=== PATIENT | male | born 1995 | race Caucasian/White ===

== ENCOUNTER 2022-10-11 14:05 | Outpatient (REF) | payer OTHER, SELFPAY ==
[2022-10-11 16:28] LABS: Influenza A PCR NEGATIVE (Negative); Influenza B PCR NEGATIVE (Negative); Resp Syncy Virus RNA Qual PCR NEGATIVE (Negative); SARS COV2 PCR INHOUSE NEGATIVE (Negative)
== END 2022-10-11 14:06 | disposition home or self-care (01) ==
LOC: HO.LNP 14:05
PROVIDERS: Visit Provider Physician Assistant
DX: J06.9 Acute upper respiratory infection, unspecified (principal); Z20.822 Contact with and (suspected) exposure to COVID-19
CPT/HCPCS: 0241U

== ENCOUNTER 2023-06-01 15:51 | Outpatient (AMB) | payer OTHER, SELFPAY ==
[2023-06-01 16:06] VITALS: BP 120/78; PULSE 62; O2SAT 98; BMI 22.7
--- NOTE | 2023-06-01 16:06 | A.OFFPC_ITS ---
Vital Signs 06/01/23 16:06 Height 6 ft 1 in Weight 172 lb 2 oz BMI 22.7 BP 120/78 Blood Pressure Location Lt brachial Position Sitting Pulse 62 Pulse Source Pulse Oximeter Pulse Oximetry (%) 98 Oxygen Delivery Method Room Air Intake Visit Reasons: PE Allergies clarithromycin Allergy (Severe, Verified 06/01/23 16:08) Anaphylaxis clindamycin Allergy (Severe, Verified 06/01/23 16:08) Anaphylaxis Tobacco use date assessed: 06/01/23 Dental Screening Dental Screen Date: 06/01/23 Did you have a dental visit in the last 12 months?: Yes Did you have a dental problem in the last 6 months where you did not have access to dental care?: No Was dental information given to patient?: Patient has dentist HPI PE HPI Details Pt is here for a PE. Will order labs. Pt c/o increased acid reflux. Will send omeprazole. [facility] Social History Housing: House Patient Tobacco Use Status: Never used Tobacco e-Cigarette/Vaping Use: Currently Using Second Hand Smoke Exposure: Yes Current occupational status: employed Current occupation: construction Current occupational exposures/hazards: Yes Cognitive needs: No Hearing needs: No Vision needs: No Questionnaire Thrive Questionnaire Date Thrive assessed: 05/31/22 AUDIT C Alcohol Use Questionnaire (AUDIT-C) 1. How often do you have a drink containing alcohol?: Monthly or less 2. How many drinks containing alcohol do you have on a typical day when you are drinking?: 3 or 4 3. How often do you have six or more drinks on one occasion?: Never Total Score: 2 YAZMIN-7 AMB Questionnaire YAZMIN-7 Date YAZMIN - 7 assessed: 05/31/22 Source: Developed by Drs. Florencio Granado, Rachel Cordero, James Leavitt and colleagues, with an educational sheryl from [employer]. Review of Systems Const Denies chills and Denies fever(s) Eyes Denies blurry vision ENT Denies vertigo, Denies dizziness and Denies sore throat Card Denies chest pain at rest, Denies chest pain with activity, Denies diaphoresis, Denies dyspnea and Denies dyspnea on exertion Resp Denies cough, Denies dyspnea, Denies dyspnea on exertion and Denies wheezing GI Denies abdominal pain, Denies melena, Denies hematochezia, Denies constipation, Denies diarrhea and Denies loose stools Denies hematuria Musc Denies numbness and Denies tingling Skin/Breast Denies lesions Neuro Denies vertigo, Denies dizziness, Denies numbness and Denies tingling Psych Denies anxiety, Denies depression, Denies homicidal ideation, Denies suicidal ideation and Denies other (substance abuse) Aller/Immun Denies wheezing Physical exam (Primary Care) Vital Signs: Last Vital Signs Pulse 62 06/01/23 16:06 BP 120/78 06/01/23 16:06 Pulse Ox 98 06/01/23 16:06 Oxygen Delivery Method Room Air 06/01/23 16:06 BMI result Body Mass Index 22.7 Tobacco/Smoking Status: Tobacco use Status Tobacco use date assessed 06/01/23 06/01/23 16:11 Patient Tobacco Use Status Never used Tobacco 06/01/23 16:07 e-Cigarette/Vaping Use Currently Using 06/01/23 16:07 Thrive Assessment: Date of Thrive Assessment Date Thrive assessed 05/31/22 06/01/23 16:07 Const General: cooperative Nutritional Appearance: well nourished Orientation/consciousness: patient oriented x3 HENMT Head: Yes normal to inspection, Yes normocephalic and Yes atraumatic Ears: TM's normal bilaterally Eyes General: appearance normal, both eyes and all related structures Alignment and Position: alignment normal and position normal Neck Neck: Yes normal visual inspection and Yes no lymphadenopathy Thyroid: Thyroid normal Resp Effort & Inspection: normal respiratory effort Auscultation: clear to auscultation bilaterally Cardio Rate: regular rate Rhythm: regular rhythm Heart sounds: S1 normal heart sound present, S2 normal heart sound present and no murmurs GI Palpation (GI): Soft to palpation and nontender Auscultation: normal bowel sounds Male General Exam: Yes normal external exam Penis: normal penis Scrotum: scrotum normal, testes descended bilaterally and no inguinal hernias Testes: no testicular mass Skin Rashes: no rashes Neuro General: patient oriented x3, moves all extremities, no focal motor deficits and deep tendon reflexes 2+ bilaterally Romberg Test: Negative Psych Appearance: grossly normal Mental Status: mental status grossly normal Speech and movement: Normal speech and movement present Affect: normal affect Attitude: cooperative Thought process: Normal thought process present Thought content: Normal thought content present Insight: Good insight present (Psych) Judgement: Good judgement present (Psych) Assessment and Plan Assessment & Plan (1) Physical exam: Code(s): Z00.00 - Encounter for general adult medical examination without abnormal findings Plan: Labs ordered Plan The patient agreed to the use of a medical billing associate for this encounter. Scribed for MARY Pérez by Ivy Cazares medical billing associate, on 06/01/2023 at 16:15 EST. Orders: Orders Complete Blood Count Auto Diff Today Z00.00 - Encounter for general adult medical examination without abnormal findings Comprehensive [place]. Panel Fast Today Z00.00 - Encounter for general adult medical examination without abnormal findings TSH reflex Free T4 Today Z00.00 - Encounter for general adult medical examination without abnormal findings UA CC w/rflx Micro + Cult Today Z00.00 - Encounter for general adult medical examination without abnormal findings Lipid Panel Today Z00.00 - Encounter for general adult medical examination without abnormal findings Medications: New omeprazole 20 mg PO DAILY 90 caps 0RF Coding Level of Care Code Est Pt Prev Care 18-39y(83489) Diagnoses Physical exam Z00.00
== END 2023-06-01 16:57 | disposition home or self-care (01) ==
PROVIDERS: PCP Nurse Practitioner Family; Visit Provider Nurse Practitioner Family
DX: Z00.00 Encounter for general adult medical examination without abnormal findings (principal)
CPT/HCPCS: 99395

== ENCOUNTER 2023-09-02 07:27 | Outpatient (REF) | payer OTHER, SELFPAY ==
[2023-09-02 11:06] LABS: MANUAL DIFF FLAG NO
[2023-09-02 11:19] LABS: Basophils Percent Auto 0.5 % (0-2); Eosinophils Absolute Auto 0.2 X10*3/uL (0.0-0.4); Hematocrit 43.9 % (42.0-52.0); Hemoglobin 15.3 g/dl (14.0-18.0); Lymphocytes Absolute Auto 1.5 X10*3/uL (1.2-4.9); Lymphocytes Percent Auto 38.1 % (20-40); Mean Corpuscular HGB Conc 34.9 g/dl (31.0-36.0); Mean Corpuscular Hemoglobin 30.7 pg (27.0-33.0); Mean Platelet Volume 11.9 fL (9.4-12.4); Monocytes Absolute Auto 0.4 X10*3/uL (0.1-1.2); Monocytes Percent Auto 10.9 % (2-11); Neutrophils Absolute Auto 1.9 x10*3/uL (2.0-8.3); Neutrophils Percent Auto 46.5 % (45-73); Platelet Count 200 X10*3/uL (160-400); Red Blood Count 4.99 X10*6/uL (4.60-5.80); Red Cell Distribution Width 12.4 % (11.0-16.0)
[2023-09-02 11:22] LABS: Appearance Urine Turbid; Color Urine Yellow; Glucose Urine UA Negative (Negative); Leukocyte Esterase Urine Negative (Negative); Nitrite Urine Negative (Negative); UMIC TRIGGER UACC YES; Urine Blood Negative (Negative); Urine Ketones Negative (Negative); Urine Protein 100 (2+) mg/dL (Neg-Trace)
[2023-09-02 11:38] LABS: Bacteria Urine None Seen (None Seen); RBC Urine 0-2 /HPF (0-2); Squamous Epithelial Cell Urine 0-2 /HPF (0-2); WBC Urine 0-5 /HPF (0-5)
[2023-09-02 11:41] LABS: Alanine Aminotransferase 27 U/L (0-40); Albumin Level 4.8 g/dL (3.5-5.0); Alkaline Phosphatase 41 U/L (39-117); Anion Gap 11 (12-20); Aspartate Amino Transferase 26 U/L (5-37); Bilirubin Total 0.5 mg/dL (0.0-1.0); Blood Urea Nitrogen 18 mg/dL (9-16); Calcium 9.7 mg/dL (8.4-10.2); Carbon Dioxide 26 mmol/L (22-29); Chloride 106 mmol/L (96-108); Cholesterol 182 mg/dL (<200); Estimated Glomerular Filt Rate > 60; Glucose Fasting 103 mg/dL (60-99); HDL Cholesterol 50 mg/dL (>40); LDL Cholesterol Calculated 110 mg/dL (<100); Potassium 3.7 mmol/L (3.3-5.1); Sodium 139 mmol/L (135-145); Total Protein 7.4 g/dL (6.5-8.0); Triglycerides 114 mg/dL (<150)
[2023-09-02 11:57] LABS: TSH reflex Free T4 0.93 uIU/mL (0.32-4.0)
== END 2023-09-02 07:28 | disposition home or self-care (01) ==
LOC: HO.HMGCLDS 07:27
PROVIDERS: PCP Nurse Practitioner Family; Visit Provider Nurse Practitioner Family
DX: Z00.00 Encounter for general adult medical examination without abnormal findings (principal); Z13.220 Encounter for screening for lipoid disorders; Z13.0 Encounter for screening for diseases of the blood and blood-forming organs and certain disorders involving the immune mechanism; Z13.29 Encounter for screening for other suspected endocrine disorder
CPT/HCPCS: 36415; 80053; 80061; 81001; 84443; 85025

== ENCOUNTER 2023-11-22 09:14 | Outpatient (AMB) | payer OTHER, SELFPAY ==
--- NOTE | 2023-11-22 10:29 | MHC.OFFWIV ---
Intake Vital Signs 11/22/23 10:38 Height 6 ft 1 in Weight 165 lb BMI 21.8 BP 120/76 Blood Pressure Location Lt brachial Position Sitting Pulse 61 Pulse Source Pulse Oximeter Temp 98.4 F Temp Source Temporal Artery Scan Pulse Oximetry (%) 99 Oxygen Delivery Method Room Air Intake Visit Reasons: EP cough headache congestion [id number] Intake Note: pt is here today for cough headache congestion started yesteday Patient Tobacco Use Status: Never used Tobacco Allergies clarithromycin Allergy (Severe, Verified 11/22/23 11:20) Anaphylaxis clindamycin Allergy (Severe, Verified 11/22/23 11:20) Anaphylaxis Medication List - Last Reconciled 11/22/23 by Yadira Duarte, [facility] albuterol sulfate 90 mcg/actuation 2 puffs inhalation Q6H PRN loratadine (Claritin) 10 mg PO DAILY multivitamin 1 tab PO DAILY omeprazole 20 mg PO DAILY Do you need a note to return to daycare/school/sports/work: Yes HPI HPI Comments History of Present Illness Details HERE TODAY C/O FLU LIKE SX STARTED LAST COVID TEST + LAST MONDAY BOTHERSOME SX IS A COUGH THAT CONTINUES PAROXYSMAL NONPRODUCTIVE COVID TEST NEGATIVE YESTERDAY EXPOSED TO SISTER W/ RSV. + ASTHMA, TRIED RESCUE INHALER W MINIMAL RELIEF PFSH Social History Housing: House Patient Tobacco Use Status: Never used Tobacco e-Cigarette/Vaping Use: Currently Using Second Hand Smoke Exposure: Yes Current occupational status: employed Current occupation: construction Current occupational exposures/hazards: Yes Cognitive needs: No Hearing needs: No Vision needs: No Review of Systems Const All systems reviewed & are unremarkable except as noted in HPI and below Physical Exam Vital Signs: Last Vital Signs Temp 98.4 F 11/22/23 10:38 Pulse 61 11/22/23 10:38 BP 120/76 11/22/23 10:38 Pulse Ox 99 11/22/23 10:38 Oxygen Delivery Method Room Air 11/22/23 10:38 BMI result Body Mass Index 21.8 Const Other: Ls CTAB, paroxysmal coughing RRR Assessment & Plan Assessment & Plan (1) Asthma exacerbation: Code(s): J45.901 - Unspecified asthma with (acute) exacerbation Qualifiers: Asthma severity: mild Asthma persistence: intermittent Qualified Code(s): J45.21 - Mild intermittent asthma with (acute) exacerbation Plan: . Plan offered and declined in office updraft tx advised to use ICS for about 1 month or until his sx resolve Edu on reasons to RTO Medications: New benzonatate 100 mg PO TID 10 days PRN 30 caps 1RF cough prednisone 50 mg PO DAILY 5 days 5 tabs 0RF fluticasone propionate 50 mcg/actuation (Flovent Diskus) 1 inh inhalation Q12H 30 days 60 ea 0RF Coding Level of Care Code Est Pt Level 3 (44162) Diagnoses Mild intermittent asthma with exacerbation J45.21 Asthma severity: mild Asthma persistence: intermittent
[2023-11-22 10:38] VITALS: BP 120/76; PULSE 61; TEMP 36.9; O2SAT 99; BMI 21.8
== END 2023-11-22 12:06 | disposition home or self-care (01) ==
PROVIDERS: PCP Nurse Practitioner Family; Visit Provider Nurse Practitioner Family
DX: J45.21 Mild intermittent asthma with (acute) exacerbation (principal)
CPT/HCPCS: 99213

== ENCOUNTER 2024-01-29 16:06 | Outpatient (AMB) | payer OTHER, SELFPAY ==
--- NOTE | 2024-01-29 16:09 | AM.OFFVISNUR ---
Intake Intake Visit Reasons: TDAP W/ Steven Intake Note: patient was given a tdap in office, tolerated well. Allergies clarithromycin Allergy (Severe, Verified 11/22/23 11:20) Anaphylaxis clindamycin Allergy (Severe, Verified 11/22/23 11:20) Anaphylaxis Immunizations Boostrix Tdap 2.5 Lf unit-8 mcg-5 Lf/0.5 mL intramuscular syringe Performing Provider: MARY Starks Performing Location: [facility] Administered by: Steven Corea CMA on 01/29/24 16:10 Dose Route Admin Location Dispensed Lot Number Expiration Date NDC Digital Marketing Program Manager 0.5 mL IM Left Deltoid 0.5 mL [id number] 03/29/26 [id number] [employer] VIS Given Date VIS Provided VIS Publication Date 01/29/24 Single Vaccine 21 Eligibility Eligibility Date Funding Source Not VFC Eligible 01/29/24 Private Coding Assessment & Plan Assessment & Plan Orders: Orders TDaP Immunization Today Z23 - Encounter for immunization
== END 2024-01-29 16:09 | disposition home or self-care (01) ==
LOC: HO.HMGC 16:06
PROVIDERS: PCP Nurse Practitioner Family; Visit Provider Nurse Practitioner Family
DX: Z23 Encounter for immunization (principal)
CPT/HCPCS: 90471; 90715

== ENCOUNTER 2024-06-08 08:38 | Outpatient (REF) | payer OTHER, SELFPAY ==
[2024-06-08 11:01] LABS: MANUAL DIFF FLAG NO
[2024-06-08 11:04] LABS: Basophils Percent Auto 0.5 % (0-2); Eosinophils Absolute Auto 0.1 X10*3/uL (0.0-0.4); Eosinophils Percent Auto 2.9 % (0-4); Hematocrit 46.5 % (42.0-52.0); Hemoglobin 16.2 g/dl (14.0-18.0); Imm Gran Abs Auto 0.01 X10*3/uL (0.00-0.03); Imm Gran Pct Auto 0.2 % (0.0-0.4); Lymphocytes Absolute Auto 1.6 X10*3/uL (1.2-4.9); Lymphocytes Percent Auto 37.8 % (20-40); Mean Corpuscular HGB Conc 34.8 g/dl (31.0-36.0); Mean Corpuscular Hemoglobin 30.6 pg (27.0-33.0); Mean Corpuscular Volume 87.7 fL (80.0-98.0); Mean Platelet Volume 11.6 fL (9.4-12.4); Monocytes Absolute Auto 0.4 X10*3/uL (0.1-1.2); Monocytes Percent Auto 10.7 % (2-11); Neutrophils Percent Auto 47.9 % (45-73); Platelet Count 202 X10*3/uL (160-400); Red Cell Distribution Width 12.6 % (11.0-16.0); White Blood Count 4.1 X10*3/uL (4.8-10.8)
[2024-06-08 11:15] LABS: Appearance Urine Clear; Color Urine Yellow; Glucose Urine UA Negative (Negative); Leukocyte Esterase Urine Negative (Negative); Nitrite Urine Negative (Negative); PH 7.5 (5.0-9.0); Specific Gravity - Urine 1.015 (1.005-1.025); UMIC TRIGGER UACC YES; Urine Blood Negative (Negative); Urine Ketones Negative (Negative); Urine Protein 30 (1+) mg/dL (Neg-Trace)
[2024-06-08 11:22] LABS: Bacteria Urine None Seen (None Seen); Hyaline Casts Urine 0-2 /LPF (0-2); RBC Urine 0-2 /HPF (0-2); Squamous Epithelial Cell Urine 0-2 /HPF (0-2); WBC Urine 0-5 /HPF (0-5)
== END 2024-06-08 08:39 | disposition home or self-care (01) ==
LOC: HO.HMGCLDS 08:38
PROVIDERS: PCP Nurse Practitioner Family; Visit Provider Nurse Practitioner Family
DX: D72.819 Decreased white blood cell count, unspecified (principal)
CPT/HCPCS: 36415; 81001; 85025

== ENCOUNTER 2024-06-25 15:15 | Outpatient (AMB) | payer OTHER, SELFPAY ==
[2024-06-25 15:16] VITALS: BP 130/80; PULSE 82; O2SAT 98; BMI 24.6
--- NOTE | 2024-06-25 15:16 | A.OFFPC_ITS ---
Vital Signs 06/25/24 15:16 Height 6 ft 1 in Weight 186 lb 7 oz BMI 24.6 BP 130/80 Blood Pressure Location Rt brachial Position Sitting Pulse 82 Pulse Source Pulse Oximeter Pulse Oximetry (%) 98 Oxygen Delivery Method Room Air Intake Visit Reasons: Annual PE Intake Note: pt is here for annual exam Water Softener Installer Required: No Accompanied by: Self / Same As Patient Allergies clarithromycin Allergy (Severe, Verified 06/25/24 15:17) Anaphylaxis clindamycin Allergy (Severe, Verified 06/25/24 15:17) Anaphylaxis Tobacco use date assessed: 06/25/24 Dental Screening Dental Screen Date: 06/25/24 Did you have a dental visit in the last 12 months?: Yes Did you have a dental problem in the last 6 months where you did not have access to dental care?: No Was dental information given to patient?: Patient has dentist HPI Annual PE HPI Details Pt is here for a PE. Labs have been ordered. Pt has a hx of proteinuria. Will repeat UA. Encouraged pt to stay hydrated. Leukopenia also noted, will repeat labs. [facility] Social History Housing: House Patient Tobacco Use Status: Never used Tobacco e-Cigarette/Vaping Use: Currently Using Second Hand Smoke Exposure: Yes Current occupational status: employed Current occupation: construction Current occupational exposures/hazards: Yes Cognitive needs: No Hearing needs: No Vision needs: No Questionnaire PHQ-9 Over the last 2 weeks, how often have you been bothered by any of the following problems? 1. Little interest or pleasure in doing things: not at all 2. Feeling down, depressed, or hopeless: not at all 3. Trouble falling or staying asleep, or sleeping too much: several days 4. Feeling tired or having little energy: several days 5. Poor appetite or overeating: not at all 6. Feeling bad about yourself - or that you are a failure or have let yourself or your family down: not at all 7. Trouble concentrating on things, such as reading the newspaper or watching television: not at all 8. Moving or speaking so slowly that other people could have noticed. Or the opposite - being so fidgety or restless that you have been moving around a lot more than usual: not at all 9. Thoughts that you would be better off or of hurting yourself in some way: not at all Total score: 2 Depression Screening Interpretation: Negative Depression Screening Done: Yes 87098 - PHQ-9 Billing: Yes Source: Developed by Drs. Florencio Granado, Rachel Cordero, James Leavitt and colleagues, with an educational sheryl from [employer]. Thrive Questionnaire Date Thrive assessed: 06/25/24 I am a: Patient What is your living situation today?: I have a steady place to live Within the past 12 months, did the food you bought not last and you didn't have the money to get more?: Never true Within the past 12 months, did you worry whether your food would run out before you got money to buy more?: Never true Do you have trouble paying for medicines?: No Do you have trouble getting transportation to medical appointments?: No Do you have trouble paying your heating and electricity bill?: No Do you have trouble taking care of your child, family member or friend?: No Do you have trouble with day-to-day activities such as bathing, preparing meals, shopping, managing finances, etc.?: No Are you currently unemployed and looking for a job?: No Are you interested in more education?: No Please select the resources that you would like help with: None Currently or been in a relationship where the following occur: No concerns reported THRIVE Score: 0 AUDIT C Alcohol Use Questionnaire (AUDIT-C) 1. How often do you have a drink containing alcohol?: Monthly or less 2. How many drinks containing alcohol do you have on a typical day when you are drinking?: 3 or 4 3. How often do you have six or more drinks on one occasion?: Less than monthly Total Score: 3 Score Reviewed/Action Taken: Yes YAZMIN-7 AMB Questionnaire YAZMIN-7 Date YAZMIN - 7 assessed: 06/25/24 Feeling nervous, anxious, or on edge: 0 = Not at all Not being able to stop or control worryin = Not at all Worrying too much about different things: 1 = Several days Trouble relaxin = Not at all Being so restless that it is hard to sit still: 0 = Not at all Becoming easily annoyed or irritable: 0 = Not at all Feeling afraid as if something awful might happen: 0 = Not at all Total YAZMIN-7 score (0-4 normal; 5-9 mild; 10-14 moderate; 15-21 severe): 1 Source: Developed by Drs. Florencio Granado, Rachel Cordero, James Leavitt and colleagues, with an educational sheryl from [employer]. YAZMIN-7 Assessment Billing YAZMIN-7 Assessment Tool: YAZMIN-7 Assessment [id number] Review of Systems Const Denies chills and Denies fever(s) Eyes Denies blurry vision ENT Denies vertigo, Denies dizziness and Denies sore throat Card Denies chest pain at rest, Denies chest pain with activity, Denies diaphoresis, Denies dyspnea and Denies dyspnea on exertion Resp Denies cough, Denies dyspnea, Denies dyspnea on exertion and Denies wheezing GI Denies abdominal pain, Denies melena, Denies hematochezia, Denies constipation and Reports loose stools Denies hematuria Musc Denies numbness and Denies tingling Skin/Breast Denies lesions Neuro Denies vertigo, Denies dizziness, Denies numbness and Denies tingling Psych Denies anxiety, Denies depression, Denies homicidal ideation, Denies suicidal ideation and Denies other (substance abuse) Aller/Immun Denies wheezing Physical exam (Primary Care) Vital Signs: Last Vital Signs Pulse 82 06/25/24 15:16 BP 130/80 06/25/24 15:16 Pulse Ox 98 06/25/24 15:16 Oxygen Delivery Method Room Air 06/25/24 15:16 BMI result Body Mass Index 24.6 Tobacco/Smoking Status: Tobacco use Status Tobacco use date assessed 06/25/24 06/25/24 15:21 Patient Tobacco Use Status Never used Tobacco 06/25/24 15:16 e-Cigarette/Vaping Use Currently Using 06/25/24 15:16 PHQ-9: PHQ-9 Score PHQ-9: Total score 2 06/25/24 15:21 Depression Screening Interpretation: Negative Thrive Assessment: Date of Thrive Assessment Date Thrive assessed 06/25/24 06/25/24 15:21 Currently or been in a relationship where the following occur: No concerns reported Const General: cooperative Nutritional Appearance: well nourished Orientation/consciousness: patient oriented x3 HENMT Head: Yes normal to inspection, Yes normocephalic and Yes atraumatic Ears: TM's normal bilaterally Eyes General: appearance normal, both eyes and all related structures Alignment and Position: alignment normal and position normal Neck Neck: Yes normal visual inspection, Yes no lymphadenopathy and Yes supple Resp Effort & Inspection: normal respiratory effort Auscultation: clear to auscultation bilaterally Cardio Rate: regular rate Rhythm: regular rhythm Heart sounds: S1 normal heart sound present, S2 normal heart sound present and no murmurs GI Palpation (GI): Soft to palpation and nontender Auscultation: normal bowel sounds Male General Exam: Yes normal external exam Penis: normal penis Scrotum: scrotum normal, testes descended bilaterally and no inguinal hernias Testes: no testicular mass Skin Rashes: no rashes Neuro General: patient oriented x3, moves all extremities, no focal motor deficits and deep tendon reflexes 2+ bilaterally Romberg Test: Negative Psych Appearance: grossly normal Mental Status: mental status grossly normal Speech and movement: Normal speech and movement present Affect: normal affect Attitude: cooperative Thought process: Normal thought process present Thought content: Normal thought content present Insight: Good insight present (Psych) Judgement: Good judgement present (Psych) Assessment and Plan Assessment & Plan (1) Physical exam: Code(s): Z00.00 - Encounter for general adult medical examination without abnormal findings Plan: Labs have been ordered (2) Leukopenia: Code(s): D72.819 - Decreased white blood cell count, unspecified Plan: Labs ordered (3) Proteinuria: Code(s): R80.9 - Proteinuria, unspecified Plan: UA ordered Plan The patient agreed to the use of a medical office worker for this encounter. Scribed for MARY Pérez by Ivy Cazares medical office worker, on 06/25/2024 at 15:30 EST. Orders: Orders UA CC w/rflx Micro + Cult Today Z00.00 - Encounter for general adult medical examination without abnormal findings Complete Blood Count Auto Diff Today Z00.00 - Encounter for general adult medical examination without abnormal findings Comprehensive Met. Panel Today D72.819 - Decreased white blood cell count, unspecified Medications: Refilled omeprazole 20 mg PO DAILY 90 caps 1RF Coding Level of Care Code Est Pt Prev Care 18-39y(74406) Diagnoses Physical exam Z00.00 Leukopenia D72.819 Proteinuria R80.9 Additional Codes YAZMIN-7 Assessment Billing - YAZMIN-7 Assessment Tool: YAZMIN-7 Assessment [id number] ([id number])
== END 2024-06-25 15:45 | disposition home or self-care (01) ==
PROVIDERS: PCP Nurse Practitioner Family; Visit Provider Nurse Practitioner Family
DX: Z00.00 Encounter for general adult medical examination without abnormal findings (principal); D72.819 Decreased white blood cell count, unspecified; R80.9 Proteinuria, unspecified
CPT/HCPCS: 99395

== ENCOUNTER 2024-08-21 08:40 | Outpatient (AMB) | payer OTHER, SELFPAY ==
[2024-08-21 09:10] VITALS: BP 110/78; PULSE 78; TEMP 36.8; O2SAT 97
--- NOTE | 2024-08-21 09:10 | AM.OFFWIN_ITS ---
Intake Vital Signs 08/21/24 09:10 Weight 185 lb BP 110/78 Blood Pressure Location Rt brachial Position Sitting Pulse 78 Pulse Source Pulse Oximeter Temp 98.2 F Temp Source Oral Pulse Oximetry (%) 97 Oxygen Delivery Method Room Air Intake Visit Reasons: EP vomiting, fever, sinus, throat pain Intake Note: Patient here for sinus pressure, vomiting and fevers. Patient Tobacco Use Status: Never used Tobacco Allergies clarithromycin Allergy (Severe, Verified 08/21/24 09:12) Anaphylaxis clindamycin Allergy (Severe, Verified 08/21/24 09:12) Anaphylaxis Do you need a note to return to daycare/school/sports/work: Yes HPI EP vomiting, fever, sinus, throat pain HPI Details This note is constructed using voice recognition software. While every effort has been made to ensure accuracy, filtration plant operator errors may have been included. The patient is a 28 year old male who presents to the clinic today with vomiting, sinus, throat pain for the past week. He notes that when he got home from work on August 14, he started with vomiting. That continued until the . He then developed sore throat, which fell like razor blades. He continues to have a cough since then. He denies fever, chills, shortness of breath. He reports that overall he is feeling better since onset but his symptoms have not resolve. [facility] Social History Housing: House Patient Tobacco Use Status: Never used Tobacco e-Cigarette/Vaping Use: Currently Using Second Hand Smoke Exposure: Yes Current occupational status: employed Current occupation: construction Current occupational exposures/hazards: Yes Cognitive needs: No Hearing needs: No Vision needs: No Review of Systems Const All systems reviewed & are unremarkable except as noted in HPI and below Physical Exam Vital Signs: Last Vital Signs Temp 98.2 F 08/21/24 09:10 Pulse 78 08/21/24 09:10 BP 110/78 08/21/24 09:10 Pulse Ox 97 08/21/24 09:10 Oxygen Delivery Method Room Air 08/21/24 09:10 Const General: cooperative, healthy appearing, comfortable and no acute distress Orientation/consciousness: patient oriented x3 Limitations: no limitations HEENT Head: Yes normal to inspection Ears: hearing grossly normal bilaterally, external ears normal and TM's normal bilaterally General nose exam: Normal external nose present, Normal nares present and No nasal discharge present Face and sinus: Yes normal facial exam and Yes sinuses nontender Mouth: Normal oral and palatal mucosa present and moist mucous membranes Throat: Yes tonsils normal, Yes uvula midline and Yes posterior oropharynx abnormal (Erythema) Eyes General: appearance normal, both eyes and all related structures Neck Neck: Yes normal visual inspection Resp Effort & Inspection: normal respiratory effort, able to speak in complete sentences, Actively coughing, no respiratory distress, not tachypneic, no tripod positioning and no use of accessory muscles Auscultation: clear to auscultation bilaterally Cardio Jugular venous distension: no JVD Rate: regular rate Rhythm: regular rhythm Heart sounds: S1 normal heart sound present, S2 normal heart sound present, no click, no gallops, no murmurs and no rubs Bruits: no abdominal aortic bruits GI Inspection: Yes normal to inspection Palpation (GI): No Abdominal aortic bruit present, Soft to palpation and nontender Percussion: Yes normal to percussion Auscultation: normal bowel sounds Skin General skin exam: no rashes or lesions noted, elasticity normal and turgor normal Neuro General: patient oriented x3 Extrem General: Yes normal to inspection and Yes no clubbing, cyanosis or edema Assessment & Plan Assessment & Plan (1) Upper respiratory tract infection: Code(s): J06.9 - Acute upper respiratory infection, unspecified Qualifiers: URI type: unspecified URI Qualified Code(s): J06.9 - Acute upper respiratory infection, unspecified Plan: Given timeline since onset of symptoms, deferred testing. Patient is likely experiencing a viral etiology. Reviewed at home support methods including hydration, humidification, vix vapor rub, sinus rinse. Advised follow up with worsening symptoms such as dyspnea at rest, which would require emergent evaluation. Letter provided to remain out of work today and tomorrow, and covering his missed absences. Plan See above for full details and plan. Coding Level of Care Code Est Pt Level 3 (53676) Diagnoses Upper respiratory tract infection, unspecified type J06.9 URI type: unspecified URI
== END 2024-08-21 09:43 | disposition home or self-care (01) ==
PROVIDERS: PCP Nurse Practitioner Family; Visit Provider Registered Nurse
DX: J06.9 Acute upper respiratory infection, unspecified (principal)

== ENCOUNTER → 2024-08-21 08:40 | Outpatient (BNVA) | payer OTHER, SELFPAY | PROVIDERS: PCP Nurse Practitioner Family; Visit Provider Registered Nurse ==